=== PATIENT | male | born 1955 | race Caucasian/White ===

== ENCOUNTER → 2017-02-18 | Outpatient (CLI) | payer BC ==
[~2017-02-18] MED LIST: FA/M1TAB27 PO; GLUC500C29 PO; LEVO50TA80 PO; ZYRTEC PO
== END ==
LOC: RESP 20:47
PROVIDERS: ATTEND Nurse Practitioner Family
DX: G47.31 Primary central sleep apnea (principal); R40.0 Somnolence; R53.81 Other malaise; R06.83 Snoring; G47.61 Periodic limb movement disorder

== ENCOUNTER → 2017-07-09 | Outpatient (CLI) | payer BC ==
--- NOTE | 2017-07-09 09:09 | EKG ---
FACILITY: [facility] [place] PATIENT NAME: SLIME MEJIA : [id number] MR: [id number] V: [id number] EXAM DATE: ORDERING PHYSICIAN: JAQUELIN SINGH TECHNOLOGIST: JULIÁN Test Reason : PREOP-KNEE Blood Pressure : / mmHG Vent. Rate : 059 BPM Atrial Rate : 059 BPM P-R Int : 196 ms QRS Dur : 096 ms QT Int : 420 ms P-R-T Axes : 081 197 053 degrees QTc Int : 415 ms Sinus bradycardia Right superior axis deviation Incomplete right bundle branch block Possible Right ventricular hypertrophy Abnormal ECG No previous ECGs available Confirmed by JAQUELIN HAYDEN ([id number]) on 07/09/2017 1:08:11 PM Referred By: SAMANTHA Confirmed By:JAQUELIN HAYDEN
[2017-07-09 09:15] LABS: PLATELET COUNT, AUTOMATED 172 K/uL (150-450)
== END ==
LOC: LAB 08:39
PROVIDERS: ATTEND Anesthesiology
DX: Z01.812 Encounter for preprocedural laboratory examination (principal); Z01.810 Encounter for preprocedural cardiovascular examination; S83.231A Complex tear of medial meniscus, current injury, right knee, initial encounter; R94.31 Abnormal electrocardiogram [ECG] [EKG]
CPT/HCPCS: 36415; 85025; 93005